=== PATIENT | female | born 1980 ===

== ENCOUNTER 2023-01-07 05:52 | Day surgery (SDC) | payer OTHER ==
[~2023-01-07] VITALS: Ht 165.1 cm; Wt 68.0 kg
[2023-01-07] MEDS ORDERED: NAPR500T14 PO (09:27)
[2023-01-07] MEDS ORDERED: MORGIDOX100 MG PO (09:27)
== END 2023-01-07 14:35 | disposition home or self-care (01) ==
LOC: CIR.AMB 05:52
PROVIDERS: ATTEND Obstetrics & Gynecology
DX: N84.0 Polyp of corpus uteri (principal); N88.2 Stricture and stenosis of cervix uteri; D25.9 Leiomyoma of uterus, unspecified; N92.1 Excessive and frequent menstruation with irregular cycle; I10 Essential (primary) hypertension; Z20.822 Contact with and (suspected) exposure to COVID-19